=== PATIENT | female | born 1970 | race Caucasian/White ===

== ENCOUNTER 2020-07-19 09:15 | Emergency (ER) | payer OTHER ==
--- OUTSIDE RECORDS SUMMARY | 2020-07-19 09:34 | XMS REPORT | Continuity of Care Document ---
:1970 Author Organization [facility] t Address [address] [place] [address] Care Team Providers Name Role Phone Unavailable Unavailable Unavailable Problems Condition Condition Condition Status Onset Resolution Last Treating Co mments Source Name Details Category Date Date Treatment Clinician Date Other Other Diagnosis Active [facility] synovitis synovitis [facility] - [facility] and [facility] tenosynovi tenosynovi l tis, right tis, right [facility] Foot pain, Foot pain, Diagnosis Active [facility] Allergies, Adverse Reactions, Alerts This patient has no known allergies or adverse reactions. Medications Ordered Filled Start Stop Current Ordering Indication Dosage Frequency Signature Comments Components Source Medication Medication Date Date Medication? Clinician (SIG) Name Name Magnesium Magnesium Yes Olayinka [address] [facility] 02-05 [place] with a [facility] - 00:00: meal [facility] 00 [facility] ent Clinics Vitamin D Vitamin D Yes Olayinka [address] [facility] 02-05 [place] [facility] - [facility]: [facility] 00 [facility] Clinics Zyrtec Zyrtec Yes Olayinka [address] Allergy Allergy 02-05 [place] [facility] - [facility]: [facility] 00 [facility]ics Lisinopril Lisinopril Yes Olayinka [address] [facility] -31 [place] [facility] - 00[facility]: [facility] 00 [facility] Aleve Aleve Yes Olayinka [address] [facility] [place] with food [facility] - or milk as [facility]oria needed [facility] ent Clinics Procedures This patient has no known procedures. Encounters Start End Encounter Admission Attending Care Care Encounter Source Date/Time Date/Time Type Type Clinicians Facility Department ID 2018-02-26 2018-02-26 [facility] [id number] [facility] 14:30[facility]00 14[facility]30[facility]00 [facility] 2018-02-07 2018-02-07 Outpatient [facility] [id number] [facility] 11:57:00 11:57:00 t [facility] 2018-02-06 2018-02-06 Outpatient Napoleon Emery [id number] [facility] 10:47:00 10:47:00 t [facility] 2018-02-05 2018-02-05 Outpatient Napoleon Emery [id number] [facility] 08:00:00 08:00:00 t [facility] Results This patient has no known results.
[2020-07-19 10:16] LABS: Urine Blood 3+ (NEG); Urine Glucose NEGATIVE (NEG); Urine Protein 2+ (NEG); Urine Specific Gravity >1.030 (1.005-1.030)
[2020-07-19 10:32] LABS: Urine RBC LOADED /HPF (NONE SEEN)
[2020-07-19 10:33] LABS: Urine Bacteria >50 /HPF (<20)
[2020-07-19 12:22] LABS: Absolute Lymphocytes (CBC) 3.2 K/uL (0.7-4.9); Basophils % 0.5 % (0-1.3); Hematocrit 39.4 % (36.0-45.0); Lymphocytes % 25.1 % (15.3-44.8); MPV 9.3 fL (7.6-11.3); RBC Red Blood Cell Count 4.53 M/uL (3.86-4.86)
[2020-07-19 12:36] LABS: BUN Blood Urea Nitrogen 10 mg/dL (7-18); Bicarbonate 29 mmol/L (21-32); Glucose Level 113 mg/dL (74-106); Potassium 3.9 mmol/L (3.5-5.1); Sodium Level 139 mmol/L (136-145)
--- NOTE | 2020-07-19 12:40 | RAD REPORT ---
EXAM DESCRIPTION: CTAbdomen Pelvis W Contrast - 07/19/2020 12:29 pm CLINICAL HISTORY: Abdominal pain. ABD PAIN COMPARISON: No comparisons TECHNIQUE: Biphasic CT imaging of the abdomen and pelvis was performed with 100 ml non-ionic IV cont rast. All CT scans are performed using dose optimization technique as appropriate and may include automated exposure control or mA/KV adjustment according to patient size. FINDINGS: The lung bases are clear. Cholecystectomy clips. The liver, spleen, pancreas, adrenal glands and kidneys are within normal limits. No bowel obstruction, free air, free fluid or abscess. Mild sigmoid diverticulosis coli without diver ticulitis. The appendix is normal. No evidence of significant lymphadenopathy. No suspicious bony findings. IMPRESSION: No acute intra-abdominal or pelvic finding.
--- NOTE | 2020-07-19 12:56 | EDPHYS ---
Physician Documentation [facility] Name: Jessenia Choe Age: 50 yrs Sex: Female : 1970 Arrival Date: 07/19/2020 Time: 09:17 Bed 26 Private MD: ED Physician Yoseph Colunga HPI: 07/19 10:24 This 50 yrs old Female presents to ER via Ambulatory with complaints of Blood kb In Urine. 10:24 The patient presents with urinary symptoms, hematuria, foul smelling urine. Onset: The kb symptoms/episode began/occurred yesterday. Modifying factors: The symptoms are alleviated by nothing, the symptoms are aggravated by urinating. Associated signs and symptoms: Pertinent positives: hematuria. Severity of symptoms: At their worst the symptoms were moderate, in the emergency department the symptoms are unchanged. The patient has experienced a previous episode. The patient has not recently seen a physician. Pt reports hematuria since yesterday with clots. States she had foul smelling urine this morning. Called Dr Villalobos and was told to come to the ER for evaluation . 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 - Social history:: Smoking status: Patient denies any tobacco usage or history of. ROS: 10:18 Constitutional: Negative for fever, chills, and weight loss, Cardiovascular: Negative kb for chest pain, palpitations, and edema, Respiratory: Negative for shortness of breath, cough, wheezing, and pleuritic chest pain, Back: Negative for injury and pain, MS/Extremity: Negative for injury and deformity, Skin: Negative for injury, rash, and discoloration, Neuro: Negative for headache, weakness, numbness, tingling, and seizure. 10:18 Abdomen/GI: Positive for abdominal pain, of the suprapubic area. 10:18 : Positive for hematuria, foul smelling urine. Exam: 10:18 Constitutional: This is a well developed, well nourished patient who is awake, alert, kb and in no acute distress. Head/Face: Normocephalic, atraumatic. Chest/axilla: Normal chest wall appearance and motion. Nontender with no deformity. No lesions are appreciated. Cardiovascular: Regular rate and rhythm with a normal S1 and S2. No gallops, murmurs, or rubs. Normal PMI, no JVD. No pulse deficits. Respiratory: Lungs have equal breath sounds bilaterally, clear to auscultation and percussion. No rales, rhonchi or wheezes noted. No increased work of breathing, no retractions or nasal flaring. Back: No spinal tenderness. No costovertebral tenderness. Full range of motion. Skin: Warm, dry with normal turgor. Normal color with no rashes, no lesions, and no evidence of cellulitis. MS/ Extremity: Pulses equal, no cyanosis. Neurovascular intact. Full, normal range of motion. Neuro: Awake and alert, GCS 15, oriented to person, place, time, and situation. Cranial nerves II-XII grossly intact. Motor strength 5/5 in all extremities. Sensory grossly intact. Cerebellar exam normal. Normal gait. 10:18 Abdomen/GI: Inspection: abdomen appears normal, Bowel sounds: normal, in all quadrants, Palpation: soft, in all quadrants, mild abdominal tenderness, in the suprapubic area. Vital Signs: 09:40 BP 167 / 91; Pulse 78; Resp 16; Temp 97.8(TE); Pulse Ox 100% on R/A; Weight 88.9 kg; ss Height 5 ft. 4 in. (162.56 cm); Pain 5/10; 14:14 BP 149 / 89; Pulse 83; Resp 16; Pulse Ox 99% ; Pain 2/10; ll1 09:40 Body Mass Index 33.64 (88.90 kg, 162.56 cm) MDM: 09:49 Patient medically screened. kb 10:02 Data reviewed: vital signs, nurses notes. Data interpreted: Pulse oximetry: on room air kb is 100 %. Interpretation: normal. 12:55 Counseling: I had a detailed discussion with the patient and/or guardian regarding: the kb historical points, exam findings, and any diagnostic results supporting the discharge/admit diagnosis, lab results, radiology results, the need for outpatient follow up, a family practitioner, to return to the emergency department if symptoms worsen or persist or if there are any questions or concerns that arise at home. 07/19 10:01 Order name: Urine Microscopic Only; Complete Time: 10:38 kb 07/19 10:03 Order name: Urine Dipstick--Ancillary (enter results); Complete Time: 10:17 kb 07/19 10:03 Order name: Urine --Ancillary (enter results); Complete Time: 10:17 kb 07/19 10:03 Order name: Urine --Ancillary (enter results) kb 07/19 10:35 Order name: Urine Culture EDMS 07/19 12:04 Order name: Basic Metabolic Panel kb 07/19 12:04 Order name: CBC with Diff kb 07/19 12:04 Order name: CT Abd/Pelvis - IV Contrast Only; Complete Time: 12:42 kb 07/19 12:05 Order name: Basic Metabolic Panel; Complete Time: 12:37 EDMS 07/19 12:05 Order name: CBC with Automated Diff; Complete Time: 12:27 EDMS 07/19 12:39 Order name: CREATININE WHOLE BLOOD; Complete Time: 12:42 EDMS 07/19 10:01 Order name: Urine Dipstick-Ancillary (obtain specimen); Complete Time: 12:06 kb 07/19 12:04 Order name: IV Saline Lock; Complete Time: 12:10 kb 07/19 12:04 Order name: Labs collected and sent; Complete Time: 12:11 kb Administered Medications: 13:00 Drug: NS 0.9% 1000 ml Route: IV; Rate: 1000 ml; Site: right antecubital; ll1 14:15 Follow up: Response: No adverse reaction; RASS: Alert and Calm (0); IV Status: ll1 Completed infusion; IV Intake: 500ml 13:01 Drug: TORadol - Ketorolac 15 mg Route: IVP; Site: right antecubital; ll1 14:15 Follow up: Response: No adverse reaction; Pain is decreased; RASS: Alert and Calm (0) ll1 13:01 Drug: Macrobid 100 mg Route: PO; ll1 14:16 Follow up: Response: No adverse reaction; RASS: Alert and Calm (0) ll1 Disposition: 07/20 07:27 Co-signature as Attending Physician, Yoseph Colunga MD I agree with the assessment and kdr plan of care. Disposition: 07/19/20 12:55 Discharged to Home. Impression: Urinary tract infection, site not specified. - Condition is Stable. - Discharge Instructions: Urinary Tract Infection, Adult, [id number]. - Prescriptions for Macrobid 100 mg Oral Capsule - take 1 capsule by ORAL route every 12 hours for 10 days; 20 capsule. - Medication Reconciliation Form, Thank You Letter, Antibiotic Education, Prescription Opioid Use form. - Follow up: Emergency Department; When: As needed; Reason: Worsening of condition. Follow up: Private Physician; When: 2 - 3 days; Reason: Recheck today's complaints, Continuance of care, Re-evaluation by your physician. Signatures: Dispatcher [employer] EDIA Melina Swain FNP-C FNP-Yoseph Stratton MD MD [facility] Shasha Medina RN RN ss Radha Kamara RN RN ll1 Corrections: (The following items were deleted from the chart) 07/19 14:16 12:55 07/19/2020 12:55 Discharged to Home. Impression: Urinary tract infection, site ll1 not specified. Condition is Stable. Forms are Medication Reconciliation Form, Thank You Letter, Antibiotic Education, Prescription Opioid Use. Follow up: Emergency Department; When: As needed; Reason: Worsening of condition. Follow up: Private Physician; When: 2 - 3 days; Reason: Recheck today's complaints, Continuance of care, Re-evaluation by your physician. kb
--- NOTE | 2020-07-19 12:56 | ER ---
Nurse's Notes [facility] Name: Jessenia Choe Age: 50 yrs Sex: Female : 1970 Arrival Date: 07/19/2020 Time: 09:17 Bed 26 Private MD: Diagnosis: Urinary tract infection, site not specified Presentation: 07/19 09:40 Chief complaint: Patient states: suprapubic discomfort, foul smelling urine and blood ss clots in urine that began yesterday. Coronavirus screen: Client denies travel out of the [place] in the last 14 days. Ebola Screen: Patient denies exposure to infectious person. Patient denies travel to an Ebola-affected area in the 21 days before illness onset. Initial Sepsis Screen: Does the patient meet any 2 criteria? No. Patient's initial sepsis screen is negative. Does the patient have a suspected source of infection? Yes: Dysuria/Frequency/Urgency/UTI. Risk Assessment: Do you want to hurt yourself or someone else? Patient reports no desire to harm self or others. Onset of symptoms was July 18, 2020. 09:40 Method Of Arrival: Ambulatory ss 09:40 Acuity: LETA 3 ss Triage Assessment: 12:10 General: Appears in no apparent distress. Behavior is calm, cooperative, appropriate ll1 for age. 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 - Social history:: Smoking status: Patient denies any tobacco usage or history of. Screenin:14 Abuse screen: Denies threats or abuse. Denies injuries from another. Nutritional ss screening: No deficits noted. Tuberculosis screening: Never had TB. Fall Risk None identified. Assessment: 10:14 Reassessment: urine micro sent. ss 12:10 General: Appears in no apparent distress. Behavior is calm, cooperative, appropriate ll1 for age. Pain: Complains of pain in suprapubic area Pain currently is 5 out of 10 on a pain scale. Quality of pain is described as aching, crampy. Neuro: No deficits noted. Cardiovascular: No deficits noted. Respiratory: No deficits noted. GI: No deficits noted. : Urine is clear, Reports burning with urination, urgency, urinary frequency. Vital Signs: 09:40 BP 167 / 91; Pulse 78; Resp 16; Temp 97.8(TE); Pulse Ox 100% on R/A; Weight 88.9 kg; ss Height 5 ft. 4 in. (162.56 cm); Pain 5/10; 14:14 BP 149 / 89; Pulse 83; Resp 16; Pulse Ox 99% ; Pain 2/10; ll1 09:40 Body Mass Index 33.64 (88.90 kg, 162.56 cm) ED Course: 09:17 Patient arrived in ED. rg4 09:41 Triage completed. ss 09:42 Arm band placed on right wrist. ss 09:48 Melina Swain FNP-C is PHCP. kb 09:48 Yoseph Colunga MD is Attending Physician. kb 10:15 Urine collected: clean catch specimen, cloudy, noemy colored. jp3 12:05 Radha Kamara, RN is Primary Nurse. ll1 12:14 Bed in low position. Call light in reach. Warm blanket given. Verbal reassurance given. jp3 Pulse ox on. NIBP on. 12:14 Inserted saline lock: 20 gauge in right antecubital area, using aseptic technique. jp3 Blood collected. 12:14 Initial lab(s) drawn, by me, sent to lab. Patient maintains SpO2 saturation greater jp3 than 95% on room air. 12:29 CT Abd/Pelvis - IV Contrast Only In Process Unspecified. EDMS 14:14 IV discontinued, intact, bleeding controlled, No redness/swelling at site. Pressure ll1 dressing applied. 14:15 No provider procedures requiring assistance completed. ll1 Administered Medications: 13:00 Drug: NS 0.9% 1000 ml Route: IV; Rate: 1000 ml; Site: right antecubital; ll1 14:15 Follow up: Response: No adverse reaction; RASS: Alert and Calm (0); IV Status: ll1 Completed infusion; IV Intake: 500ml 13:01 Drug: TORadol - Ketorolac 15 mg Route: IVP; Site: right antecubital; ll1 14:15 Follow up: Response: No adverse reaction; Pain is decreased; RASS: Alert and Calm (0) ll1 13:01 Drug: Macrobid 100 mg Route: PO; ll1 14:16 Follow up: Response: No adverse reaction; RASS: Alert and Calm (0) ll1 Intake: 14:15 IV: 500ml; Total: 500ml. ll1 Outcome: 12:55 Discharge ordered by . lolita 14:16 Patient left the ED. ll1 14:16 Discharged to home ambulatory. ll1 14:16 Condition: stable 14:16 Discharge instructions given to patient, Instructed on discharge instructions, follow up and referral plans. medication usage, Demonstrated understanding of instructions, follow-up care, medications, Prescriptions given X 1. Addendum: 07/22/2020 09:11 Addendum: Culture Results: Positive urine culture. No further action required. Bacteria i w sensitive to prescribed antibiotic. Signatures: Dispatcher [employer] EDMS Melina Swain, LABORATORY ANIMAL CARE VETERINARIAN-C LABORATORY ANIMAL CARE VETERINARIAN-Ckb Dee George, RN RN Shasha Arango, MOISES RN Tanesha Camacho rg4 Jan Alegria jp3 Radha Kamara RN RN ll1 Corrections: (The following items were deleted from the chart) 07/19 12:21 10:15 Urine collected: clean catch specimen, clear, noemy colored, selvin crespo3
[2020-07-19] MEDS ORDERED: NA CHLORIDE 0.9% 1,000 ML ONE (13:02)
[2020-07-19] MEDS ORDERED: KETOROLAC 30 MG/ML INJ ONE (13:02)
[2020-07-19] MEDS ORDERED: NITROFURAN MACRO 100 MG CAP PO ONE (13:02)
[2020-07-19 14:20] VITALS: TEMP 97.8
[2020-07-19 14:22] VITALS: BP 149/89; O2SAT 99
== END 2020-07-19 14:16 | disposition home or self-care (01) ==
LOC: ER 09:15
DX: N39.0 Urinary tract infection, site not specified (principal); Z88.1 Allergy status to other antibiotic agents
CPT/HCPCS: 96361; 87088; 85025; 87086; 80048; 36415; 81025; 82565; 87077; 87186; 74177; 96374; 99284; Q9967; J7030; 81003; 81015

== ENCOUNTER 2021-03-08 10:55 | Day surgery (SDC) | payer OTHER ==
[2021-03-03 15:01] LABS: Absolute Lymphocytes (CBC) 2.8 K/uL (0.7-4.9); Basophils % 0.5 % (0-1.3); Hematocrit 37.8 % (36.0-45.0); Lymphocytes % 25.9 % (15.3-44.8); MPV 8.9 fL (7.6-11.3); RBC Red Blood Cell Count 4.33 M/uL (3.86-4.86)
[2021-03-03 15:02] LABS: Protime INR 1.05
[2021-03-03 15:15] LABS: BUN Blood Urea Nitrogen 9 mg/dL (7-18); Bicarbonate 29 mmol/L (21-32); Glucose Level 91 mg/dL (74-106); Potassium 3.7 mmol/L (3.5-5.1); Sodium Level 139 mmol/L (136-145)
[~2021-03-08 10:55] MED LIST: CLINDAMYCIN INJ 600 MG in NA CHLORIDE 0.9% 50 ML IV SCH; Gentamicin Inj 160 MG in NA CHLORIDE 0.9% 100 ML IV SCH
[2021-03-08] MEDS ORDERED: Ringers Lactate 1,000 ML IV ONE (12:00)
[2021-03-08] MEDS ORDERED: FENTANYL CITR 100 MCG/2 ML ONE (13:17)
[2021-03-08] MEDS ORDERED: LIDOCAINE 2% MPF 5 ML VIAL ONE (13:17)
[2021-03-08] MEDS ORDERED: propofoL 200 MG/20 ML VIAL IV ONE (13:17)
[2021-03-08] MEDS ORDERED: KETOROLAC 30 MG/ML INJ ONE (13:17)
[2021-03-08] MEDS ORDERED: dexAMETHasone 10 MG/ML VIAL ONE (13:17)
[2021-03-08] MEDS ORDERED: MIDAZOLAM HCL 2 MG/2 ML INJ ONE (13:17)
[2021-03-08] MEDS ORDERED: ONDANSETRON 4 MG/2 ML VIAL ONE (13:17)
[2021-03-08] MEDS ORDERED: PHENAZOPYRIDINE 100MG TAB PO ONE ×2 (15:02→16:17)
[2021-03-08] MEDS ORDERED: CODEINE 30MG/APAP 300MG TAB PO PRN (15:02)
--- NOTE | 2021-03-08 15:07 | RAD REPORT ---
EXAM DESCRIPTION: RAD - Urethrocystogrphy Retrograde - 03/08/2021 2:50 pm CLINICAL HISTORY: BLADDER BIOPSY/ BILAT RETROGRADE COMPARISON: PELVIC COMPLETE dated 06/28/2007; Abdomen Pelvis W Contrast dated 07/19/2020; Abdomen E xam Complete dated 10/05/2020 FINDINGS: Nineteen intraoperative fluoroscopic images were submitted showing cannulation of the bila teral ureters with contrast injection. Neither collecting system is dilated. No filling defects ident ified. IMPRESSION: Unremarkable retrograde pyelograms.
[2021-03-08 15:20] VITALS: BP 144/87; O2SAT 98
[2021-03-08] MEDS ORDERED: CODEINE 30MG/APAP 300MG TAB ONE (16:03)
--- NOTE | 2021-03-08 16:41 | OP ---
Surgeon: JARON FELDMAN Preoperative Diagnoses: 1.Bladder lesion. 2.Lower urinary tract symptoms. 3.Gross hematuria. Postoperative Diagnoses: 1.Gross hematuria. 2.Overactive bladder, lower urinary tract symptoms. 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 Principle Procedures: 1.Cystoscopy including white light and narrow band imaging. 2.Bilateral retrograde pyelography with delayed fluoroscopic imagery to assess T1 half of drainage. Indication For Procedure: Ms. Choe presented to the Urology Clinic with history of kidney stones st atus post ESWL in 2016 and recurrent urinary tract infections with different organisms associated wit h gross hematuria and suprapubic associated with lower back pain in the setting of long-standing irri tative urinary symptoms of frequency in the setting of normal capacity without gross detrusor instabi lity noted, but with stress incontinence noted at 94 cm of water capacity. Because a bladder lesion was noted initially, bladder biopsy was recommended in addition to retrograde studies given the gross hematuria, but her otherwise low-intermediate risk. Of note, renal ultrasound was unremarkable and voided urinary cytology and fluorescence in situ hybridization studies were also negative. Procedure In Detail: The patient was consented in the preoperative holding area before being transfe rred to the operative suite where general anesthesia was induced. She was given clindamycin and gent amicin IV antimicrobial prophylaxis because of an allergy to cephalosporins. Pneumo boots were provi ded for DVT prophylaxis. She was placed in lithotomy position, padded and secured to the table appro priately. Her genitalia were prepped using Hibiclens and she was draped in standard fashion. The ca se was begun using a 22-Qatari rigid cystoscope to traverse the urethra and into the bladder with eas e. The bladder was surveyed, and no mucosal lesions, foreign bodies or stones were noted throughout with white light cystoscopy. Careful cystoscopic evaluation was performed including in the area wher e the prior lesion had been noted within the posterior dome of the bladder. Despite this, no bladder lesions of suspicion were noted. Thus, narrow band imaging was performed, and similarly, no mucosal lesions of suspicion were noted. As a result, I turned my attention to the right ureteral orifice w hich was cannulated using the tip of a 5-Qatari ureteral access catheter. Right retrograde pyelography: Using a 70:30 mixture of Omnipaque and saline, contrast was injected via the lumen of the 5-Qatari ur eteral access catheter and did propagate with ease up a nondilated ureter into a normal appearing caio al pelvis with sharp calices visible, but potentially somewhat posteriorly rotated. No filling defec ts were noted along the entirety of the course of the ureter or within the renal pelvis or the calice s. The lower pole calyx did not demonstrate completely full anatomic distribution, though the emt/paramedic ior rotation of the kidney likely affected that fluoroscopic appearance. As a result, I then removed the 5-Qatari ureteral access catheter and watched while there was rapid efflux of the contrast from the right kidney. Repeat fluoroscopic imagery showed clearance of the majority of the contrast in a pretty rapid fashion with pulsatile efflux from and along the ureteral lumen. I thus turned my atten tion to the left kidney. Left retrograde pyelography: I placed the 5-Qatari ureteral access catheter into the ureteral orifice on the left side this time, and I injected the 70:30 mixture of Omnipaque and saline. 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 The left kidney was lower than the right kidney, present at the body o f L3, L4 in an anomalous position lower than the typically lower right kidney. The kidney was not be neath the pelvic brim. The junction of the ureter with the renal pelvis on that side did show a dire ct communication appropriately into the upper pole, but a rather kinked or drooping daksha appearance i nto the lower pole component of the collecting system consistent with potential renal ptosis versus U PJ obstruction. As a result, additional contrast was injected to completely fill each of the calices , and while no filling defects were noted, there was blunting of the calices on the left side. This was suggestive of the potential for UPJ obstruction. As a result, I then observed the patient with s pot fluoroscopic imagery obtained initially at 6 minutes after contrast injection, again at 10 minute s after contrast injection, and again at about 15 minutes after contrast injection. At least 50% of the contrast bolus administered initially had efflux out of the kidney within the 15 minute period, w hich would be suggestive of equivocal obstruction at best. As a result, I elected not to place a lef t ureteral stent electing for postoperative followup. Her bladder had already been decompressed during the point of fluoroscopic followup, and so the scope was removed, she was taken out of the lithotomy position, she was transferred to a stretcher, and th en transferred to the recovery room in good condition. Complications: None. Discharge Disposition: I would recommend follow up in the Urology Clinic with nurse practitioner, Abel suero where a MAG3 Lasix renogram can be arranged to assess specifically the followin.Split renal function. 2.The T1 half of drainage bilaterally. The patient may follow up with me after the MAG3 Lasix renog jeffy is completed where we would discuss potential management options if any significant obstruction i s noted. SHELIA/MODL Voice ID: [id number] Report ID: [id number]
[2021-03-08 17:43] VITALS: TEMP 96.9
== END 2021-03-08 16:20 | disposition home or self-care (01) ==
LOC: OR 10:55
PROVIDERS: ATTEND Urology
PROC: BT14YZZ Fluoroscopy of Kidneys, Ureters and Bladder using Other Contrast (ICD-10-PCS; 2021-03-08)
PROC: 0TJB8ZZ Inspection of Bladder, Via Natural or Artificial Opening Endoscopic (ICD-10-PCS; principal; 2021-03-08 12:15)
DX: N32.9 Bladder disorder, unspecified (principal); N39.0 Urinary tract infection, site not specified; R31.0 Gross hematuria; Z20.822 Contact with and (suspected) exposure to COVID-19
CPT/HCPCS: 52000; 93005; 87088; 85025; 87086; 80048; 36415; 81025; 85610; 74450; 51610; U0002; J2704; J1580; J2250; J3010; J1100; J7120; J2405

== ENCOUNTER 2023-01-08 15:20 | Emergency (ER) | payer OTHER ==
--- OUTSIDE RECORDS SUMMARY | 2023-01-08 15:24 | XMS REPORT | Continuity of Care Document ---
:1970 Author Organization [facility] t Address [address] [facility] [address] [place] [address] Care Team Providers Name Role Phone Pcp, Patient Does Not Have A Primary Care Physician [id number] Katelyn Díaz MA Attending Clinician Unavailable MILLY ROY Attending Clinician Unavailable Doctor Unassigned, [place] Attending Clinician Unavailable Payers Payer Name Policy Type Policy Number Effective Date Expiration Date S karel AETNA C1 [id number] Common [facility] AETNA CHOICE [id number] 2018 POS II 00:00:00 Problems Condition Condition Condition Status Onset Resolution Last Treating Co mments Source Name Details Category Date Date Treatment Clinician Date Elevated Elevated Disease Active Unive rs blood blood 1-13 ity of pressure pressure 00:00: [place] reading reading 00 Medical without without Branch diagnosis diagnosis of of hypertensi hypertensi on on [id number] Kidney Problem Active Common anomaly, Spirit congenital [facility] [id number] Recurrent Problem Active Com mon UTI [facility] [id number] Lower Problem Active Common urinary [facility] [id number] Cystitis Problem Active Commo n [facility] [id number] Lesion of Problem Active Com mon bladder [facility] [id number] OAB Problem Active Common (overactiv Spirit e bladder) [facility] Gross Gross Problem Active Common hematuria hematuria Spir it - [facility] Allergies, Adverse Reactions, Alerts Allergy Allergy Status Severity Reaction(s) Onset Inactive Treating Comm ents Source Name Type Date Date Clinician Manish Faithensi Active Rash Univer s xacin ty to 1-13 ity of (Bulk) adverse 00:00: [place] reaction 00 Medical s Branch AMOXICIL DRUG Active High Rash Univers JAIME-POT 1-13 ity of CLAVULAN 00:00: [place] ATE 00 Medical Branch CIPROFLO DRUG Active High Rash Univers XACIN 1-13 ity of (BULK) 00:00: [place] 00 Medical Branch NO KNOWN Drug Active Univers ALLERGIE Class ity of S [facility] [id number] Drug Active Unknown Common allergy [facility] Social History Social Habit Start Date Stop Date Quantity Comments Source History of Common Spirit - Tobacco Use [facility] Sex Assigned At Common Sp марина - [facility] Tobacco use and 2020-07-21 2020-07-21 Never used Universit y of exposure 00:00:00 00:00:00 [facility] Alcohol intake 2020-07-21 2020-07-21 Current drinker Unive rsity of 00:00:00 00:00:00 of alcohol [facility] [place] Smoking Status Start Date Stop Date Source Unknown if ever smoked [facility] Never Smoker [facility] Medications Ordered Filled Start Stop Current Ordering Indication Dosage Frequency Signature Comments Components Source Medication Medication Date Date Medication? Clinician (SIG) Name Name Fluconazole Fluconazole 2020- No 1{table Fluconazol 150 MG 150 MG 03-16 t} e 150 MG 00:00: 00:00 00 :00 Bactrim DS Bactrim DS 2020- No 1{table BID Bactrim DS 800-160 MG 800-160 MG 01-24 t} 800-160 MG 00:00: 00:00 00 :00 estradioL Yes [id number] 2g Insert 2 g Univers 0.01 % (0.1 1-15 into ity of mg/gram) 00:[place] vaginal 00 bedtime. Medical cream Insert Branch every night for 2 weeks, and then 2-3 times per week. Nitrofurant Yes TAKE ONE Un fabienne oin&Nit. 1-11 (1) ity of [place] 00:00: CAPSULE(S) [place] 100 mg 00 BY MOUTH Medical capsule EVERY Branch TWELVE HOURS. mometasone Yes INSTILL Univ ers 50 07-10 TWO (2) ity of mcg/actuati 00:00[place] nasal 00 IN EACH Medical spray NOSTRIL Branch ONCE DAILY. [facility]table QD Zyrtec Allergy 10 Allergy 10 02-05 t} Allergy 10 MG MG 00:00: MG 00 Vitamin D Vitamin D No 2{capsu QD Vitamin D 400 UNIT 400 UNIT 02-05 les} 400 UNIT 00:00: 00 Magnesium Magnesium No 1{table QD Magnesium 250 MG 250 MG 02-05 t_with_ 250 MG 00:00: a_meal} 00 [facility]table QD Zyrtec Allergy 10 Allergy 10 02-05 t} Allergy 10 MG MG 00:00: MG 00 Vitamin D Vitamin D No 2{capsu QD Vitamin D 400 UNIT 400 UNIT 02-05 les} 400 UNIT 00:00: 00 Magnesium Magnesium No 1{table QD Magnesium 250 MG 250 MG 02-05 t_with_ 250 MG 00:00: a_meal} 00 [facility]{table QD ZyrTEC Allergy 10 Allergy 10 02-05 t} Allergy 10 MG MG 00:00: MG 00 Vitamin D Vitamin D No 2{capsu QD Vitamin D 400 UNIT 400 UNIT 02-05 les} 400 UNIT 00:00: 00 [facility] No 1{table QD ZyrTEC Allergy 10 Allergy 10 02-05 t} Allergy 10 MG MG 00:00: MG 00 Magnesium Magnesium No 1{table QD Magnesium 250 MG 250 MG 02-05 t_with_ 250 MG 00:00: a_meal} 00 Vitamin D Vitamin D No 2{capsu QD Vitamin D 400 UNIT 400 UNIT 02-05 les} 400 UNIT 00:00: 00 Magnesium Magnesium No 1{table QD Magnesium 250 MG 250 MG 02-05 t_with_ 250 MG 00:00: a_meal} 00 ZyrTEC ZyrTEC No 1{table QD ZyrTEC Allergy 10 Allergy 10 02-05 t} Allergy 10 MG MG 00:00: MG 00 Magnesium Magnesium No 1{table QD Magnesium 250 MG 250 MG 02-05 t_with_ 250 MG 00:00: a_meal} 00 ZyrTEC ZyrTEC No 1{table QD ZyrTEC Allergy 10 Allergy 10 02-05 t} Allergy 10 MG MG 00:00: MG 00 Vitamin D Vitamin D No 2{capsu QD Vitamin D 400 UNIT 400 UNIT 02-05 les} 400 UNIT 00:00: 00 Magnesium Magnesium Yes Olayinka 1 tablet Common 02-05 [place] with a Spirit 00:00: meal - [facility] Vitamin D Vitamin D Yes Olayinka 2 capsules Common 02-05 [place] Spirit 00:00: - [facility] Zyrtec Zyrtec Yes Olayinka 1 tablet Co mmon Allergy Allergy 02-05 [place] Spirit 00:00: - [facility] Lisinopril Lisinopril Yes Olayinka 1 tablet Common 02-05 [place] Spirit 00:00: - [facility] Magnesium Magnesium No 1{table QD Magnesium 250 MG 250 MG 02-05 t_with_ 250 MG 00:00: a_meal} Vitamin D Vitamin D No 2{capsu QD Vitamin D 400 UNIT 400 UNIT 02-05 les} 400 UNIT 00:00: 00 ZyrTEC ZyrTEC No 1{table QD ZyrTEC Allergy 10 Allergy 10 02-05 t} Allergy 10 MG MG 00:00: MG 00 Vitamin D Vitamin D No 2{capsu QD Vitamin D 400 UNIT 400 UNIT 02-05 les} 400 UNIT 00:00: 00 ZyrTEC ZyrTEC No 1{table QD ZyrTEC Allergy 10 Allergy 10 02-05 t} Allergy 10 MG MG 00:00: MG 00 Magnesium Magnesium No 1{table QD Magnesium 250 MG 250 MG 02-05 t_with_ 250 MG 00:00: a_meal} 00 Vitamin D Vitamin D No 2{capsu QD Vitamin D 400 UNIT 400 UNIT 02-05 les} 400 UNIT 00:00: 00 ZyrTEC ZyrTEC No 1{table QD ZyrTEC Allergy 10 Allergy 10 02-05 t} Allergy 10 MG MG 00:00: MG 00 Magnesium Magnesium No 1{table QD Magnesium 250 MG 250 MG 02-05 t_with_ 250 MG 00:00: a_meal} Vitamin D Vitamin D No 2{capsu QD Vitamin D 400 UNIT 400 UNIT 02-05 les} 400 UNIT 00:00: 00 Magnesium Magnesium No 1{table QD Magnesium 250 MG 250 MG 02-05 t_with_ 250 MG 00:00: a_meal} Aleve Aleve Yes Olayinka 1 tablet Common [place] with food Spirit or milk as - [facility] needed [facility] Aleve 220 Aleve 220 No BID Aleve 220 MG MG MG Losartan Losartan No 1{table QD Losartan Potassium Potassium t} Potassium 25 MG 25 MG 25 MG Losartan Losartan No 1{table QD Losartan Potassium Potassium t} Potassium 25 MG 25 MG 25 MG Aleve 220 Aleve 220 No BID Aleve 220 MG MG MG Losartan Losartan No 1{table QD Losartan Potassium Potassium t} Potassium 25 MG 25 MG 25 MG Aleve 220 Aleve 220 No BID Aleve 220 MG MG MG Aleve 220 Aleve 220 No BID Aleve 220 MG MG MG Losartan Losartan No 1{table QD Losartan Potassium Potassium t} Potassium 25 MG 25 MG 25 MG Losartan Losartan No 1{table QD Losartan Potassium Potassium t} Potassium 25 MG 25 MG 25 MG Aleve 220 Aleve 220 No BID Aleve 220 MG MG MG Aleve 220 Aleve 220 No BID Aleve 220 MG MG MG Losartan Losartan No 1{table QD Losartan Potassium Potassium t} Potassium 25 MG 25 MG 25 MG Aleve 220 Aleve 220 No BID Aleve 220 MG MG MG Losartan Losartan No 1{table QD Losartan Potassium Potassium t} Potassium 25 MG 25 MG 25 MG Aleve 220 Aleve 220 No BID Aleve 220 MG MG MG Losartan Losartan No 1{table QD Losartan Potassium Potassium t} Potassium 25 MG 25 MG 25 MG Aleve 220 Aleve 220 No BID Aleve 220 MG MG MG Losartan Losartan No 1{table QD Losartan Potassium Potassium t} Potassium 25 MG 25 MG 25 MG Vital Signs Vital Name Observation Time Observation Value Comments Source height 2021-03-21 08:00:00 63.5 [in_i] [facility] weight 2021-03-21 08:00:00 198 [lb_av] Common [facility] temperature 2021-03-21 08:00:00 98.7 [facility]degF] [facility] bmi 2021-03-21 08:00:00 34.52 kg/m2 Common S pirit [facility] oximetry 2021-03-21 08:00:00 96 % [facility] blood pressure 2021-03-21 08:00:00 147 mm[Hg] Common Spirit - systolic [facility] blood pressure 2021-03-21 08:00:00 79 mm[Hg] Common Spirit - diastolic [facility] bmi 2021-02-28 13:00:00 34.52 kg/m2 [facility] oximetry 2021-02-28 13:00:00 95 % [facility] S [facility] blood pressure 2021-02-28 13:00:00 166 mm[Hg] Common Spirit - systolic [facility] blood pressure 2021-02-28 13:00:00 87 mm[Hg] Common Spirit - diastolic [facility] height 2021-02-28 13:00:00 63.5 [in_i] Common [facility] weight 2021-02-28 13:00:00 198 [lb_av] [facility] temperature 2021-02-28 13:00:00 96.6 [degF] [facility] height 2021-01-20 08:30:00 63.5 [in_i] [facility] weight 2021-01-20 08:30:00 198 [lb_av] [facility] temperature 2021-01-20 08:30:00 97 [degF] [facility] bmi 2021-01-20 08:30:00 34.52 kg/m2 Common S pirit - [facility] oximetry 2021-01-20 08:30:00 97 % Common S pirit - [facility] blood pressure 2021-01-20 08:30:00 161 mm[Hg] Common Spirit - systolic [facility] blood pressure 2021-01-20 08:30:00 77 mm[Hg] Common Spirit - diastolic [facility] height 2021-01-11 14:30:00 63.5 [in_i] Common S pirit - [facility] weight 2021-01-11 14:30:00 198.8 [lb_av] Common Spirit - [facility] temperature 2021-01-11 14:30:00 97.9 [degF] Common S pirit - [facility] bmi 2021-01-11 14:30:00 34.66 kg/m2 Common S pirit - [facility] oximetry 2021-01-11 14:30:00 96 % Common S pirit - [facility] blood pressure 2021-01-11 14:30:00 181 mm[Hg] Common Spirit - systolic [facility] blood pressure 2021-01-11 14:30:00 87 mm[Hg] Common Spirit - diastolic [facility] height 2020-10-14 08:30:00 63.5 [in_i] Common S pirit - [facility] weight 2020-10-14 08:30:00 200 [lb_av] Common S pirit - [facility] temperature 2020-10-14 08:30:00 97.9 [degF] Common S pirit - [facility] bmi 2020-10-14 08:30:00 34.87 kg/m2 Common S pirit [facility] oximetry 2020-10-14 08:30:00 96 % Common S pirit - [facility] blood pressure 2020-10-14 08:30:00 152 mm[Hg] Common Spirit - systolic [facility] blood pressure 2020-10-14 08:30:00 72 mm[Hg] Common Spirit - diastolic [facility] height 2020-09-23 14:30:00 63.5 [in_i] [facility] weight 2020-09-23 14:30:00 201.8 [lb_av] [facility] temperature 2020-09-23 14:30:00 98 [degF] [facility] bmi 2020-09-23 14:30:00 35.18 kg/m2 [facility] oximetry 2020-09-23 14:30:00 98 % [facility] blood pressure 2020-09-23 14:30:00 155 mm[Hg] [facility] systolic [facility] blood pressure 2020-09-23 14:30:00 72 mm[Hg] [facility] diastolic [facility] Procedures Procedure Date / Time Performing Clinician Source Performed ASSIGNMENT OF BENEFITS 2020-07-21 21:30:23 Doctor Unassigned, No [facility] EXTERNAL MAMMOGRAM 2019-05-08 00:00:00 Doctor Unassigned, No [facility] EXTERNAL MAMMOGRAM 2017-12-11 00:00:00 Doctor Unassigned, No Uni [facility] EXTERNAL COLONOSCOPY 2011-06-30 00:00:00 Doctor Unassigned, No [facility] Encounters Start End Encounter Admission Attending Care Care Encounter Source Date/Time Date/Time Type Type Clinicians Facility Department ID 2021-08-03 Outpatient STLMLC STLC [id number] Common 12:41:37 [id number] [facility] 2021-08-03 Outpatient STLMLC STLMLC [id number] Common 12:40:11 [id number] [facility] 2021-06-28 2021-06-28 JOON Crocker [id number] [facility] 00:00:00 00:00:00 Management Katelyn BRYANT [id number] [place] [id number] [facility] [address] Branch 2021-03-21 2021-03-21 OFFICE STLMLC STLMLC [id number] Co mmon 00:00:00 00:00:00 VISIT EST Spir it PT LEVEL 3 [facility] 2021-03-16 2021-03-16 (TEL) STLMLC STLMLC [id number] Co mmon 00:00:00 00:00:00 [facility] 2021-02-28 2021-02-28 OFFICE STLMLC STLMLC [id number] Co mmon 00:00:00 00:00:00 VISIT EST Spir it PT LEVEL 3 - [facility] 2021-02-10 2021-02-10 (TEL) STLMLC STLMLC [id number] Co mmon 00:00:00 00:00:00 [facility] 2021-01-24 2021-01-24 (TEL) STLMLC STLMLC [id number] Co mmon 00:00:00 00:00:00 [facility] 2021-01-20 2021-01-20 OFFICE STLMLC STLMLC [id number] Co mmon 00:00:00 00:00:00 VISIT EST Spir it PT LEVEL 3 - [facility] 2021-01-11 2021-01-11 (PROC) STLMLC STLMLC [id number] Co mmon 00:00:00 00:00:00 Procedure Spir it - [facility] 2020-10-14 2020-10-14 OFFICE STLMLC STLMLC [id number] Co mmon 00:00:00 00:00:00 VISIT EST Spir it PT LEVEL 3 - [facility] 2020-09-23 2020-09-23 OFFICE STLMLC STLMLC [id number] Co mmon 00:00:00 00:00:00 VISIT NEW Spir it PT LEVEL 2 - [facility] 2020-07-21 2020-07-21 Outpatient MILLY SEQUEIRA [facility] [id number] Univers 15:30:00 15:30:00 ity of [facility] 2020-07-21 2020-07-21 Orders Doctor HELLER [id number] Univers 00:00:00 00:00:00 Only UnassignedANANDA [id number] ity of [place] [facility] [id number] Edwin as [phone] [place] [id number] Branch 2018-02-26 2018-02-26 Outpatient Napoleon Emery [id number] Common 14:30:00 14:30:00 t [facility] 2018-02-07 2018-02-07 Outpatient Napoleon Emery [id number] Common 11:57:00 11:57:00 t [facility] Sp[facility] t [facility] Joint [facility] - [facility] 2018-02-06 2018-02-06 Outpatient Napoleon Emery [id number] Common 10:47:00 10:47:00 t [facility] Spiri t and Joint Joint - [facility] 2018-02-05 2018-02-05 Outpatient Napoleon Emery [id number] Common 08:00:00 08:00:00 t Bone Bone and Spiri t and Joint [facility] - [facility] Results This patient has no known results.
[2023-01-08] MEDS ORDERED: ONDANSETRON 4 MG/2 ML VIAL ONE (15:52)
[2023-01-08] MEDS ORDERED: NA CHLORIDE 0.9% 1,000 ML ONE (15:52)
[2023-01-08] MEDS ORDERED: MORPHINE 4 MG/ML SYR ONE (15:52)
[2023-01-08 15:55] LABS: Absolute Lymphocytes (CBC) 3.1 K/uL (0.7-4.9); Hematocrit 39.3 % (36.0-45.0); Lymphocytes % 35.1 % (15.3-44.8); MCV 86.9 fL (80-100); MPV 8.9 fL (7.6-11.3); RBC Red Blood Cell Count 4.53 M/uL (3.86-4.86)
[2023-01-08 16:26] LABS: Specific Gravity 1.006 (1.005-1.030); Urine Bacteria None Seen /HPF (<20); Urine Bilirubin NEGATIVE (Negative); Urine Blood Negative (Negative); Urine Clarity Turbid (Clear); Urine Color Colorless (Yellow); Urine Crystals Unidentified Few /HPF (None Seen); Urine Glucose NEGATIVE (Negative); Urine Protein NEGATIVE (Negative); Urine RBC <5 /HPF (None Seen); Urine Urobilinogen Normal (Normal); Urine pH 6.5 (5.0-7.0)
[2023-01-08 16:43] LABS: Albumin 4.1 g/dL (3.4-5.0); Bilirubin Total 0.5 mg/dL (0.2-1.0); Potassium 3.6 mEq/L (3.5-5.1)
--- NOTE | 2023-01-08 17:14 | RAD REPORT ---
EXAM DESCRIPTION: CTAbdomen Pelvis W Contrast - 01/08/2023 5:06 pm CLINICAL HISTORY: Abdominal pain. ABD PAIN COMPARISON: Abdomen Pelvis W Contrast dated 10/19/2022; Abdomen Pelvis W Contrast dated 07/19/2020 TECHNIQUE: Biphasic CT imaging of the abdomen and pelvis was performed with 100 ml non-ionic IV cont rast. All CT scans are performed using dose optimization technique as appropriate and may include automated exposure control or mA/KV adjustment according to patient size. FINDINGS: The lung bases are clear. The liver is diffusely fatty. Cholecystectomy clips. Spleen, pancreas, adrenal glands and kidneys are within normal limits. No bowel obstruction, free air, free fluid or abscess. The appendix is normal. No evidence of signi ficant lymphadenopathy. Mild lower lumbar degenerative spondylosis. IMPRESSION: No acute intra-abdominal or pelvic finding.
--- NOTE | 2023-01-08 17:20 | ER ---
Nurse's Notes [facility] Name: Jessenia Choe Age: 52 yrs Sex: Female : 1970 Arrival Date: 01/08/2023 Time: 15:20 Bed 19 Private MD: Diagnosis: Lower abdominal pain, unspecified Presentation: 01/08 15:30 Chief complaint: Patient states: "I started having abdominal pain around my belly mb9 button yesterday Then today, I had severe sharp shooting pain on my right lower stomach. I'm feeling a little nauseous and laying down makes me feel a bit better". Coronavirus screen: Vaccine status: Patient reports receiving the 2nd dose of the covid vaccine. Ebola Screen: No symptoms or risks identified at this time. Initial Sepsis Screen: Does the patient meet any 2 criteria? No. Patient's initial sepsis screen is negative. Does the patient have a suspected source of infection? No. Patient's initial sepsis screen is negative. Risk Assessment: Do you want to hurt yourself or someone else? Patient reports no desire to harm self or others. Onset of symptoms was January 08, 2023. 15:30 Method Of Arrival: Ambulatory mb9 15:30 Acuity: LETA 3 mb9 Triage Assessment: 15:36 General: Appears uncomfortable, Behavior is calm, cooperative. Pain: Complains of pain mb9 in right lower quadrant. Neuro: [place]ita Agitation-Sedation Scale (RASS): 0 - Alert and Calm Level of Consciousness is awake, alert, obeys commands, Oriented to person, place, time, situation, Appropriate for age. Respiratory: Airway is patent Respiratory effort is even, unlabored, Respiratory pattern is regular, symmetrical. GI: Abdomen is flat, non-distended, Bowel sounds present X 4 quads. Abd is soft Abdomen is tender to palpation in right upper quadrant and right lower quadrant Reports nausea. Derm: Skin is pink, warm \\T\\ dry. Musculoskeletal: Range of motion: intact in all extremities. Historical: - Allergies: 15:32 Ciprofloxacin; mb9 15:32 Omnicef; mb9 - Home Meds: 15:32 Ozempic subcutaneous [Active]; olmesartan oral [Active]; nebivolol oral [Active]; mb9 - PMHx: 15:32 Diabetes mellitus; Hypertensive disorder; mb9 - PSHx: 15:35 Cholecystectomy; hernia; partial hysteretomy; mb9 - Immunization history:: Adult Immunizations up to date. - Social history:: Smoking status: Patient denies any tobacco usage or history of. Screenin:38 [facility] ED Fall Risk Assessment (Adult) History of falling in the last 3 months, os including since admission No falls in past 3 months (0 pts) Confusion or Disorientation No (0 pts) Intoxicated or Sedated No (0 pts) Impaired Gait No (0 pts) Mobility Assist Device Used No (0 pt) Altered Elimination No (0 pt) Score/Fall Risk Level 0 - 2 = Low Risk. Abuse screen: Denies threats or abuse. Nutritional screening: No deficits noted. Tuberculosis screening: No symptoms or risk factors identified. Assessment: 17:37 Reassessment: Patient is alert, oriented x 3, equal unlabored respirations, skin os warm/dry/pink. Neuro: No deficits noted. Cardiovascular: No deficits noted. Respiratory: No deficits noted. GI: Abd is soft Abdomen is tender to palpation in anterior aspect of right lateral abdomen and abdomen diffusely. Vital Signs: 15:30 BP 187 / 99; Pulse 84; Resp 18; Temp 97.2; Pulse Ox 100% on R/A; Weight 83.91 kg; mb9 Height 5 ft. 4 in. ; Pain 10/10; 17:39 BP 174 / 85; Pulse 87; Resp 17; Pulse Ox 99% on R/A; os 15:30 Body Mass Index 31.75 (83.91 kg, 162.56 cm) mb9 15:30 Pain Scale: Adult mb9 ED Course: 15:22 Patient arrived in ED. im 15:23 Melina Swain FNP-C is PHCP. kb 15:23 Jose Emmanuel MD is Attending Physician. kb 15:30 Arm band placed on. mb9 15:32 Triage completed. mb9 15:40 David Nava, MOISES is Primary Nurse. os 15:44 Inserted saline lock: 22 gauge in left antecubital area, using aseptic technique. Blood rs5 collected. 17:07 CT Abd/Pelvis - IV Contrast Only In Process Unspecified. EDMS 17:38 No provider procedures requiring assistance completed. IV discontinued. os Administered Medications: 15:52 Drug: NS 0.9% IV 1000 ml Route: IV; Rate: 1 bolus; Site: left antecubital; os 15:52 Drug: Ondansetron IVP 4 mg Route: IVP; Site: left antecubital; os 15:52 Drug: morphine IVP or IV 4 mg Route: IVP; Infused Over: 4 mins; Site: left antecubital; os Outcome: 17:20 Discharge ordered by MD. mchugh 17:38 Discharged to home ambulatory. os 17:38 Condition: improved 17:38 Discharge instructions given to patient, Instructed on discharge instructions, follow up and referral plans. medication usage. 17:39 Patient left the ED. os Signatures: Dispatcher [employer] EDMS Melina Swain, PENCILS WASHER-C PENCILS WASHER-CkSoila Branch RN RN mb9 Lakhwinder Campos rs5 David Nava RN RN os Swetha Smith im
--- NOTE | 2023-01-08 17:20 | EDPHYS ---
Physician Documentation [facility] Name: Jessenia Choe Age: 52 yrs Sex: Female : 1970 Arrival Date: 01/08/2023 Time: 15:20 Bed 19 Private MD: ED Physician Jose Emmanuel HPI: 01/08 15:33 This 52 yrs old Female presents to ER via Ambulatory with complaints of Abdominal Pain. kb 15:33 The patient presents with abdominal pain. Onset: The symptoms/episode began/occurred kb yesterday. The symptoms do not radiate. Associated signs and symptoms: Pertinent positives: nausea, Pertinent negatives: fever, vomiting. The symptoms are described as constant. Modifying factors: The symptoms are alleviated by nothing, the symptoms are aggravated by pressure. Severity of pain: At its worst the pain was moderate in the emergency department the pain is unchanged. The patient has not experienced similar symptoms in the past. The patient has not recently seen a physician. Pt reports abd pain that started in center of abd yesterday and has moved to RLQ. denies vomiting, diarrhea, fever. States she has nausea now due to pain. Historical: - Allergies: 15:32 Ciprofloxacin; mb9 15:32 Omnicef; mb9 - Home Meds: 15:32 Ozempic subcutaneous [Active]; olmesartan oral [Active]; nebivolol oral [Active]; mb9 - PMHx: 15:32 Diabetes mellitus; Hypertensive disorder; mb9 - PSHx: 15:35 Cholecystectomy; hernia; partial hysteretomy; mb9 - Immunization history:: Adult Immunizations up to date. - Social history:: Smoking status: Patient denies any tobacco usage or history of. ROS: 15:33 Constitutional: Negative for fever, chills, and weight loss. kb 15:33 Abdomen/GI: Positive for abdominal pain, nausea, Negative for vomiting, diarrhea. 15:33 All other systems are negative. Exam: 15:33 Constitutional: This is a well developed, well nourished patient who is awake, alert, kb and in no acute distress. Head/Face: Normocephalic, atraumatic. ENT: Moist Mucous membranes Cardiovascular: Regular rate and rhythm with a normal S1 and S2. No gallops, murmurs, or rubs. No pulse deficits. Respiratory: Respirations even and unlabored. No increased work of breathing. Talking in full sentences Skin: Warm, dry with normal turgor. Normal color. MS/ Extremity: Pulses equal, no cyanosis. Neurovascular intact. Full, normal range of motion. Neuro: Awake and alert, GCS 15, oriented to person, place, time, and situation. Moves all extremities. Normal gait. 15:33 Abdomen/GI: Inspection: abdomen appears normal, Bowel sounds: normal, Palpation: soft, in all quadrants, moderate abdominal tenderness, in the right lower quadrant. Vital Signs: 15:30 BP 187 / 99; Pulse 84; Resp 18; Temp 97.2; Pulse Ox 100% on R/A; Weight 83.91 kg; mb9 Height 5 ft. 4 in. ; Pain 10/10; 17:39 BP 174 / 85; Pulse 87; Resp 17; Pulse Ox 99% on R/A; os 15:30 Body Mass Index 31.75 (83.91 kg, 162.56 cm) mb9 15:30 Pain Scale: Adult mb9 MDM: 15:23 Patient medically screened. kb 15:33 Differential diagnosis: appendicitis, diverticulitis, non-specific abd pain. Data kb reviewed: vital signs, nurses notes. 17:15 Counseling: I had a detailed discussion with the patient and/or guardian regarding: the kb historical points, exam findings, and any diagnostic results supporting the discharge/admit diagnosis, lab results, radiology results, the need for outpatient follow up, a family practitioner, to return to the emergency department if symptoms worsen or persist or if there are any questions or concerns that arise at home. 01/08 15:31 Order name: CBC with Diff; Complete Time: 16:00 kb 01/08 15:31 Order name: CMP; Complete Time: 16:48 kb 01/08 15:31 Order name: Lipase; Complete Time: 16:48 kb 01/08 15:31 Order name: Test, Urine; Complete Time: 16:32 kb 01/08 15:31 Order name: Urinalysis w/ reflexes; Complete Time: 16:32 kb 01/08 15:31 Order name: CT Abd/Pelvis - IV Contrast Only; Complete Time: 17:14 kb 01/08 15:31 Order name: IV Saline Lock; Complete Time: 15:44 kb 01/08 15:31 Order name: Labs collected and sent; Complete Time: 15:44 kb Administered Medications: 15:52 Drug: NS 0.9% IV 1000 ml Route: IV; Rate: 1 bolus; Site: left antecubital; os 15:52 Drug: Ondansetron IVP 4 mg Route: IVP; Site: left antecubital; os 15:52 Drug: morphine IVP or IV 4 mg Route: IVP; Infused Over: 4 mins; Site: left antecubital; os Disposition: 17:49 Co-signature as Attending Physician, Jose Emmanuel MD I reviewed the patient's care rt provided by the Advanced Practice Provider and agree with the diagnosis and treatment plan. Disposition Summary: 01/08/23 17:20 Discharge Ordered Location: Home kb Condition: Stable kb Diagnosis - Lower abdominal pain, unspecified kb Followup: kb - With: Emergency Department - When: As needed - Reason: Worsening of condition Followup: kb - With: Private Physician - When: 2 - 3 days - Reason: Recheck today's complaints, Continuance of care, Re-evaluation by your physician Discharge Instructions: - Discharge Summary Sheet kb - Abdominal Pain, Adult, [id number] kb Forms: - Medication Reconciliation Form kb - Thank You Letter kb - Antibiotic Education kb - Prescription Opioid Use kb - [email or web address] kb Prescriptions: - Diclofenac Sodium 75 mg Oral tablet,delayed release (DR/EC) - take 1 tablet by ORAL route 2 times per day As needed; 30 tablet; Refills: 0, kb Product Selection Permitted Signatures: Dispatcher [employer] Melina Lam, JESSE GREY-Soila Patrick, RN RN mb9 Jose Emmanuel MD MD rt David Nava, RN RN os
[2023-01-08 18:02] VITALS: TEMP 97.2
[2023-01-08 18:03] VITALS: BP 174/85; O2SAT 99
== END 2023-01-08 17:39 | disposition home or self-care (01) ==
LOC: ER 15:20
DX: R10.31 Right lower quadrant pain (principal); E11.9 Type 2 diabetes mellitus without complications; I10 Essential (primary) hypertension; Z88.1 Allergy status to other antibiotic agents; Z88.3 Allergy status to other anti-infective agents
CPT/HCPCS: 85025; 81001; 36415; 81025; 83690; 80053; 74177; 96375; 96374; 99284; Q9967; J2405; J7030